=== PATIENT | male | born 1980 | race Hispanic/Latino ===

== ENCOUNTER 2017-03-12 03:31 | Emergency (ER) | payer SELFPAY ==
--- NOTE | 2017-03-12 03:52 | C.PDOC ---
History Of Present Illness The patient is brought to the ED vis [facility] for psychiatric evaluation after he supposedly posted on social media that he wants to "kill himself" earlier today. Patient denies suicidal/homicidal ideation and has no complaints at this time. Time Seen by Provider: 03/12/17 03:51 Chief Complaint (Nursing): Psychiatric Evaluation History Per: Patient History/Exam Limitations: no limitations Onset/Duration Of Symptoms: Hrs Current Symptoms Are (Timing): Still Present Suicide/Self Injury Attempted (Context): None Modifying Factor(s): None Severity: None Pain Scale Rating Of: 0 Associated Symptoms: denies: Suicidal Thoughts, Suicidal Plan Involuntary Hold By: None Recent travel outside of the [place]: No Additional History Per: Patient Past Medical History Reviewed: Historical Data, Nursing Documentation, Vital Signs Vital Signs: Last Vital Signs Temp 98 F 03/12/17 06:17 Pulse 96 H 03/12/17 06:17 Resp 20 03/12/17 06:17 BP 132/82 03/12/17 06:17 Pulse Ox 98 03/12/17 06:17 - Medical History PMH: No Chronic Diseases Surgical History: No Surg Hx Family History: States: Unknown Family Hx - Social History Hx Alcohol Use: No Hx Substance Use: No - Immunization History Hx Tetanus Toxoid Vaccination: No Hx Influenza Vaccination: No Hx Pneumococcal Vaccination: No Review Of Systems Psych: Positive for: Other (psychiatric evaluation ). Negative for: Anxiety, Depression, Suicidal ideation Physical Exam - Physical Exam Appears: Non-toxic, No Acute Distress Skin: Warm, Dry Head: Normacephalic Eye(s): bilateral: Normal Inspection Oral Mucosa: Moist Chest: Symmetrical, No Tenderness Cardiovascular: Rhythm Regular Respiratory: No Accessory Muscle Use Neurological/Psych: Oriented x3 ED Course And Treatment - Laboratory Results Result Diagrams: 03/12/17 04:39 03/12/17 04:39 O2 Sat by Pulse Oximetry: 99 (on RA) Pulse Ox Interpretation: Normal Progress Note: Bloodwork and UA ordered and reviewed. Disposition Counseled Patient/Family Regarding: Studies Performed, Diagnosis - Disposition Disposition Time: 03:51 Condition: UNKNOWN Forms: [facility] (Latvian) - Clinical Impression Clinical Impression: Depression - Scribe Statement The provider has reviewed the documentation as recorded by the Scribe (Melissa Carvalho) Provider Attestation: All medical record entries made by the Scribe were at my direction and personally dictated by me. I have reviewed the chart and agree that the record accurately reflects my personal performance of the history, physical exam, medical decision making, and the department course for this patient. I have also personally directed, reviewed, and agree with the discharge instructions and disposition. Physician Patient Turnover Patient Signed Over To: Juancarlos Chávez Handoff Comments: pending Psychiatrist evaluation
[2017-03-12 04:42] LABS: BASO # 0.1 K/uL (0.0-0.2); BASO % 0.9 % (0.0-2.0); EOS # 0.2 K/uL (0.0-0.7); EOS % 2.5 % (0.0-4.0); HEMOGLOBIN 14.3 g/dL (12.0-18.0); LYMPH % 34.6 % (20.0-40.0); MEAN CELL VOLUME 88.2 fL (80.0-94.0); MEAN CORPUSCULAR HEMOGLOBIN 30.5 pg (27.0-31.0); MEAN CORPUSCULAR HGB CONC 34.5 g/dL (33.0-37.0); MEAN PLATELET VOLUME 7.7 fL (7.2-11.7); MONO # 0.8 K/uL (0.0-0.8); MONO % 9.3 % (0.0-10.0); NEUT # 4.6 K/uL (1.8-7.0); NEUT % 52.7 % (50.0-75.0); NRBC % 0.1 % (0.0-2.0); RBC 4.69 Mil/uL (4.40-5.90); RED CELL DISTRIBUTION WIDTH 13.3 % (11.5-14.5); WHITE BLOOD COUNT 8.7 K/uL (4.8-10.8)
[2017-03-12 04:49] LABS: URINE BILIRUBIN NEGATIVE (NEGATIVE); URINE BLOOD NEGATIVE (NEGATIVE); URINE CLARITY Clear (Clear); URINE COLOR Yellow (YELLOW); URINE GLUCOSE (UA) NORMAL (Normal); URINE LEUKOCYTE ESTERASE NEG Leu/uL (Negative); URINE NITRATE NEGATIVE (NEGATIVE); URINE PROTEIN NEGATIVE (NEGATIVE); URINE UROBILINOGEN NORMAL mg/dL (0.2-1.0)
[2017-03-12 04:56] LABS: ALB/GLOB RATIO 1.2 (1.0-2.1); ALBUMIN 4.2 g/dL (3.5-5.0); ALT/SGPT 29 U/L (21-72); AST/SGOT 29 U/L (17-59); BLOOD UREA NITROGEN 8 mg/dL (9-20); CALCIUM 8.4 mg/dl (8.6-10.4); GFR AFRICAN-AMERICAN > 60; GFR NON-AFRICAN AMERICAN > 60
[2017-03-12 05:04] LABS: BARBITURATES, UR NEGATIVE (NEGATIVE); BENZODIAZEPINES, UR NEGATIVE (NEGATIVE); OPIATES, UR NEGATIVE (NEGATIVE); PHENCYCLIDINE, UR NEGATIVE (NEGATIVE)
[2017-03-12 08:25] VITALS: RESP 18
--- NOTE | 2017-03-12 08:28 | RAD ---
PROCEDURE: CHEST RADIOGRAPH, 1 VIEW HISTORY: psych eval COMPARISON: None available. FINDINGS: LUNGS: No acute infiltrate identified bilaterally. PLEURA: No pneumothorax or pleural fluid seen. CARDIOVASCULAR: Normal. OSSEOUS STRUCTURES: No significant abnormalities. VISUALIZED UPPER ABDOMEN: Normal. OTHER FINDINGS: None. IMPRESSION: No acute cardiopulmonary disease appreciated.
[2017-03-12 12:56] VITALS: O2SAT 100
--- NOTE | 2017-03-12 12:57 | PCM.PSYCH ---
Initial Psychiatric Evaluation - Initial Psychiatric Evaluation Chief Complaint (in patient's own words): "People attack me, it's physical but you can't see it" History of Present Illness and Precipitating Events: The pt is seen, chart reviewed and case discussed. Consult was requested for his delusions, suicide threat and bizarre behavior. Form Grader Operator spoke to his brother too, who also suffers from mental illness, with pt' s permission. They are both single, no child, unemployed, live together and on disability. Brother says the pt claims to be "controlled by Trump telepathically" and that he believes in people "attacking him paranormally." He did not threaten anyone or him or the president, but he is consumed by these paranoid delusions and has minimal functioning in life, extreme social isolation. He was surprised that the pt posted this suicide threat on Facebook, as he did not look depressed but more like preoccupied. They smoke MJ daily No past suicide attempt The pt acknowledges his beliefs about being attacked, hearing their "conversations about him" but he refuses any possibility of mental illness. He also refuses any treatment. He says he had psych treatment long ago and nth changed. Past psych hx: No admissions, but chronic hx of schizophrenia Medical hx: Denied Family psych hx: Bro, too, has psychosis. Mo was anorexic. Past Psychiatric History - Past Psychiatric History Previous Treatment History: Intensive Outpatient (long ago) Pertinent Medical Hx (Current Medical&Sleep Prob, Allergies): Allergies Allergy/AdvReac Type Severity Reaction Status Date / Time No Known Allergies Allergy Verified 03/12/17 03:47 No Known Home Med 03/12/17 Review of Systems - Neurological Neurological: UNREMARKABLE - Psychiatric Psychiatric: Abnormal Sleep Pattern, Anxiety, Difficulty Concentrating, Hallucinations, Irritability, Memory Loss, Paranoia, Suicidal Ideation, Tactile Hallucinations. absent: Homicidal Ideation Mental Status Examination - Personal Presentation Personal Presentation: Looks older than stated age - Affect Affect: Blunted (odd) - Motor Activity Motor Activity: Calm - Reliability in Providing Information Reliability in Providing Information: Poor, due to alteration in thoughts - Speech Speech: Disorganized - Mood Mood: Anxious - Formal Thought Process Formal Thought Process: Hallucinations, Delusions, Paranoia, Circumstantial - Cognitive Functions Orientation: Person, Place, Time Sensorium: Alert Attention/Concentration: Attentive Abstract Thinking: [place] Estimate of Intelligence: Below average Judgement: Imparied, as evidence by: Poor judgement Memory: Recent intact, as evidence by: Ability to recall events of the day, Remote impaired as evidenced by: Inability to recall sig life events - Risk Risk: Diminished functioning - Strength & Assets Inventory Strength & Assets Inventory: Family support DSM 5 DX - DSM 5 DSM 5 Diagnosis: Chronic schizophrenia - exacerbation Cannabis use d/o- severe - Recommended/Plan of Treatment Treatment Recommendations and Plan of Treatment: Seroquel for tonight IF he takes it prn haldol for agitation [place] screening for involuntary admission 32 min
[2017-03-12 15:09] VITALS: BP 127/84; PULSE 87; TEMP 98.4
--- NOTE | 2017-03-13 12:06 | CARD ---
APPROVED REPORT EKG Measurement Heart [id number] <Conclusion> Normal sinus rhythm Possible Left atrial enlargement Borderline ECG
== END 2017-03-12 16:11 | disposition home or self-care (01) ==
LOC: C.ER 03:31
DX: F20.9 Schizophrenia, unspecified (principal)
CPT/HCPCS: 71045; 80053; 81001; 85025; 93005; 99285; G0480

== ENCOUNTER 2017-12-27 02:31 | Emergency (ER) | payer SELFPAY ==
[2017-12-27 05:04] LABS: BASO # 0.1 K/uL (0.0-0.2); BASO % 0.6 % (0.0-2.0); EOS # 0.1 K/uL (0.0-0.7); EOS % 0.7 % (0.0-4.0); MEAN CELL VOLUME 86.5 fL (80.0-94.0); MEAN CORPUSCULAR HEMOGLOBIN 29.4 pg (27.0-31.0); MONO # 0.9 K/uL (0.0-0.8); MONO % 7.8 % (0.0-10.0); NEUT # 8.7 K/uL (1.8-7.0); NEUT % 73.9 % (50.0-75.0); NRBC % 0.1 % (0.0-2.0); RBC 4.77 Mil/uL (4.40-5.90); RED CELL DISTRIBUTION WIDTH 13.4 % (11.5-14.5); WHITE BLOOD COUNT 11.8 K/uL (4.8-10.8)
--- NOTE | 2017-12-27 05:14 | C.PDOC ---
History Of Present Illness 37 year old male presents to the emergency department with complaints of left foot pain for the last 1.5 days. Patient states that he was sitting in a chair when a "supernatural power" twisted his foot. Patient denies fever, chills, trauma, and injury. Time Seen by Provider: 12/27/17 02:45 Chief Complaint (Nursing): Lower Extremity Problem/Injury History/Exam Limitations: no limitations Onset/Duration Of Symptoms: Days (1.5) Current Symptoms Are (Timing): Still Present - Ankle/Foot Description Of Injury: Twisted Past Medical History Reviewed: Historical Data, Nursing Documentation, Vital Signs Vital Signs: Last Vital Signs Temp 97.3 F L 12/27/17 02:41 Pulse 87 12/27/17 02:41 Resp 20 12/27/17 02:41 BP 137/89 12/27/17 02:41 Pulse Ox 100 12/27/17 02:41 - Medical History PMH: No Chronic Diseases Denies: Diabetes, Hepatitis, HIV, HTN, Seizures, Sexually Transmitted Disease Surgical History: No Surg Hx Family History: States: No Known Family Hx - Social History Hx Alcohol Use: No Hx Substance Use: No - Immunization History Hx Tetanus Toxoid Vaccination: No Hx Influenza Vaccination: No Hx Pneumococcal Vaccination: No Review Of Systems Constitutional: Negative for: Fever, Chills Musculoskeletal: Positive for: Foot Pain (left foot) Physical Exam - Physical Exam Appears: Non-toxic, No Acute Distress Skin: Warm, Dry Head: Atraumatic, Tenderness Eye(s): bilateral: Normal Inspection, PERRL, EOMI Neck: Normal, Supple Chest: Symmetrical, No Tenderness Extremity: Normal ROM (Full ROM at ankle. ), Tenderness (to the lateral aspect of the left foot and the medial malleolus), Swelling (markedly swollen left foot and medial malleolus), Other (warm, mild erythema to the medial malleolus. Long, unkempt toenails. Rest of the leg is non-tender.) Neurological/Psych: Oriented x3, Normal Speech, Normal Cognition ED Course And Treatment - Laboratory Results Result Diagrams: 12/27/17 05:01 12/27/17 05:01 O2 Sat by Pulse Oximetry: 100 (RA) Pulse Ox Interpretation: Normal - Other Rad XR Left Foot X-Ray: Interpreted by Me, Viewed By Me Interpretation: Negative for fractures or dislocations. Medical Decision Making Medical Decision Making: Plan: CMP CBC Bactrim DS 1 tab PO Blood Culture XR Left Foot pt with mildly elevated wbc, exquisitely tender foot with swelling and warm areas, admission offered and pt declines. explained he will need to leave against medical advice and risks include worsening of condition, and permanent disability. The patient declines admission to the hospital and wishes to leave the Emergency Department. This action is against my medical advice to the patient and the decision was made with informed refusal. The patient was told that admission is necessary and a full explanation of the rationale was given. The risks of leaving were explained to the patient and include, but are not limited to, worsening of known or currently unknown conditions, permanent disability and from undiagnosed or untreated conditions. The patient has the capacity to make this informed decision and understands the clinical situation and my explanation of the risks of leaving. The patient voluntarily accepts these risks and a signed AMA form documenting our conversation was obtained. The patient was given the opportunity to ask questions and reconsider. The patient was encouraged to return to the Emergency Department at any time for further care. Disposition Counseled Patient/Family Regarding: Studies Performed, Diagnosis, Need For Followup, Rx Given - Disposition Referrals: [facility] [Outside] Disposition: AGAINST MEDICAL ADVICE Disposition Time: : Condition: FAIR Additional Instructions: Please follow up in medical clinic on Friday. Return to ER for any worse pain, fever. unable to walk or for any other concerns. Prescriptions: Ibuprofen [Motrin] 600 mg PO TID #30 tab Sulfamethoxazole/Trimethoprim [Bactrim 400-80 mg Tablet] 1 each PO BID #20 tablet Instructions: Cellulitis (Skin Infection), Adult (DC) Forms: [facility] (Slovenian), General Discharge Instructions - Clinical Impression Clinical Impression: Cellulitis of left foot - PA / STILL CLEANER / Resident Statement MD/DO has reviewed & agrees with the documentation as recorded. - Scribe Statement The provider has reviewed the documentation as recorded by the Scribe (Marco Gupta) All medical record entries made by the Scribe were at my direction and personall y dictated by me. I have reviewed the chart and agree that the record accurately reflects my personal performance of the history, physical exam, medical decision making, and the department course for this patient. I have also personally directed, reviewed, and agree with the discharge instructions and disposition.
[2017-12-27] MEDS ORDERED: Tmp-Smz 800 mg-160 mg DS Tab PO STA (05:15)
[2017-12-27] MEDS ORDERED: Tmp-Smz 800 mg-160 mg DS Tab ONE (05:21)
[2017-12-27 05:22] LABS: ALB/GLOB RATIO 1.3 (1.0-2.1); ALBUMIN 4.1 g/dL (3.5-5.0); ALT/SGPT 19 U/L (21-72); AST/SGOT 24 U/L (17-59); BLOOD UREA NITROGEN 7 mg/dL (9-20); CALCIUM 8.7 mg/dl (8.6-10.4); GFR NON-AFRICAN AMERICAN > 60
[2017-12-27 05:32] VITALS: BP 122/76; PULSE 74; RESP 14; TEMP 98
[2017-12-27 05:33] VITALS: O2SAT 100
--- NOTE | 2017-12-27 09:35 | RAD ---
Date of service: 12/27/2017 PROCEDURE: Left Foot Radiographs. HISTORY: swelling lateral foot pain COMPARISON: None. FINDINGS: BONES: No acute fracture or destructive bony lesion identified. JOINTS: Normal. SOFT TISSUES: Dorsal soft tissue edema identified. No retained radiodense foreign body or emphysema soft tissue change identified. OTHER FINDINGS: None. IMPRESSION: Soft tissue edema dorsally identified. No fracture or destructive bony lesion appreciated.
== END 2017-12-27 05:58 | disposition left against medical advice (07) ==
LOC: C.ER 02:31
DX: L03.116 Cellulitis of left lower limb (principal)